=== PATIENT | female | born 1985 | race Caucasian/White ===

== ENCOUNTER 2018-12-25 21:42 | Emergency (ER) | payer SELFPAY ==
[~2018-12-25] VITALS: Ht 165.1 cm; Wt 104.3 kg
--- NOTE | 2018-12-26 14:00 | EKG ---
[facility] [address] [place], [place] [address] Signed Normal sinus rhythm Normal ECG No previous ECGs available Confirmed by OBDULIO CHANG MD ([id number] on 12/26/2018 2:00:18 PM Electronically Signed By: OBDULIO CHANG MD 12/26/18 1400 PATIENT NAME: MIRYAM GARZA Electrocardiogram DATE OF : 83 PHYSICIAN: OBDULIO CHANG MD REPORT #: [id number] REPORT IS CONFIDENTIAL AND NOT TO BE RELEASED WITHOUT AUTHORIZATION
== END 2018-12-26 03:08 | disposition home or self-care (01) ==
LOC: ED 21:42
DX: R07.89 Other chest pain (principal); F17.200 Nicotine dependence, unspecified, uncomplicated; Z88.0 Allergy status to penicillin
CPT/HCPCS: 36415; 71045; 80053; 84484; 84703; 85025; 93005; 93010; 99285-25